=== PATIENT | female | born 1935 | race Caucasian/White ===

== ENCOUNTER 2016-11-09 08:33 | Inpatient (IN) | payer MEDICARE ==
[~2016-11-09] VITALS: Ht 157.5 cm; Wt 72.6 kg
[~2016-11-09 08:33] MED LIST: ALEVE220 MG PO; CITRACAL + D PO; COUMADIN2 MG PO; COUMADIN5 MG PO; FLORASTOR250 M1 PO; GABAPENTIN300 MG PO; KLOR CON PO; LORTAB 5/3255 MG PO; LOVASTATIN40 MG PO; MECLIZINE25 MG PO; MEDDOSEPAK PO; MUCINEX600 MG PO; MULTI VITAMN PO; PERCOCET 5/325M1 TAB PO; PRILOSEC20 MG/CAP PO; SYNTHROID25 MCG PO; VALIUM5 MG PO; ZOFRAN ODT4 MG PO
[2016-11-09 09:53] LABS: HEMATOCRIT 37.6 % (37.0-47.0); HEMOGLOBIN 12.3 g/dl (12.0-16.0); IMMATURE GRANULOCYTES 1.2 % (0.0-1.0); MEAN CELL VOLUME 103.9 fL CALC (80.0-100.0); MEAN CORPUSCULAR HGB CONC 32.7 g/L CALC (32.0-36.0); NEUT# 2.81 thou/uL (2.00-7.15); RED BLOOD COUNT 3.62 mill/uL (4.20-5.60); RED CELL DISTRI WIDTH 15.8 % (11.5-15.5)
[2016-11-09 10:01] LABS: ALBUMIN 3.4 g/dL (3.2-5.0); ALKALINE PHOSPHATASE 94 u/l (38-126); ANION GAP 13 (6-22 (CALC)); BILIRUBIN, TOTAL 0.4 mg/dL (0.0-1.4); BUN 13 mg/dL (8-23); BUN/CREATININE RATIO 20 (12-20 (CALC)); CALCIUM 8.8 mg/dL (8.4-10.2); CARBON DIOXIDE 26 mmol/l (22-30); CHLORIDE 102 mmol/l (95-108); CREATININE 0.7 mg/dL (0.5-1.0); GFR > 60 ML/MIN (>=60 (CALC)); GFR FOR AFR.AMER. > 60 ML/MIN (>=60 (CALC)); GLUCOSE 143 mg/dL (82-115); POTASSIUM 3.9 mmol/l (3.5-5.1); SGOT/AST 655 u/l (9-36); SGPT/ALT 576 u/l (11-66); SODIUM 137 mmol/l (137-146); TOTAL PROTEIN 7.3 g/dL (6.3-8.2)
[2016-11-09 10:02] LABS: URINE BILIRUBIN - DIPSTICK NEGATIVE (NEGATIVE); URINE BLOOD DIPSTICK TRACE-INTACT (NEGATIVE); URINE CLARITY CLEAR; URINE COLOR YELLOW; URINE GLUCOSE - DIPSTICK NEGATIVE (NEGATIVE); URINE KETONE NEGATIVE (NEGATIVE); URINE LEUK ESTERASE NEGATIVE (NEGATIVE); URINE NITRITE - DIPSTICK NEGATIVE (Negative); URINE PH 6.5 (4.5-8.0); URINE PROTEIN - DIPSTICK NEGATIVE (NEG-TRACE); URINE SPECIFIC GRAVITY 1.015; URINE UROBILINOGEN - DIPSTICK 0.2 E.U./dL (0.2)
[2016-11-09 10:09] LABS: INFLUENZA A NONE DETECTED (NONE DETECT); INFLUENZA B NONE DETECTED (NONE DETECT)
[2016-11-09 10:12] LABS: MYOGLOBIN 33 ng/mL (0 - 62)
[2016-11-09 10:14] LABS: AMYLASE 63 u/l (30-110); LIPASE 189 u/l (23-300)
--- NOTE | 2016-11-09 10:36 | NUR ---
PT RESTS IN THE STRETCHER IN NO ACUTE DISTRESS, UPDATED ON KNOWN RESULTS.
--- NOTE | 2016-11-09 11:48 | NUR ---
PT AWARE OF PENDING ADMISSION, FAMILY AND FRIENDS REMAIN AT BEDSIDE.
[2016-11-09] MEDS ORDERED: LEVOTHYROXIN75 MCG PO (11:52)
[2016-11-09] MEDS ORDERED: PREDNISONE5 MG PO (11:54)
--- NOTE | 2016-11-09 12:45 | NUR ---
PT REPORT RECEIVED FOR NELLY MATHIS. FOR CONTINUATION OF CARE. PT ALERT/ORIENTED X3, RESTING QUIETLY
--- NOTE | 2016-11-09 13:11 | NUR ---
PT TAKEN TO ULTRASOUND PER STRETCHER
--- NOTE | 2016-11-09 13:16 | NUR ---
PT BACK FROM XRAY.
--- NOTE | 2016-11-09 13:30 | NUR ---
TEMP RETAKEN 98.8
--- NOTE | 2016-11-09 14:26 | NUR ---
PT REPORT GIVEN TO RHEA MATHIS. FOR CONTIN. OF CARE. PT TAKEN TO FLOOR PER STRETCHER WITH TELEMENTRY
[2016-11-09 14:34] VITALS: BP 117/75
--- NOTE | 2016-11-09 14:38 | NUR ---
PT ARRIVED TO FLOOR @1419 VIA STRETCHER ACCOMPANIED BY DELFINA GALLARDO. PT DENIES PAIN. REPORTING OF CONCERNS ENCOURAGED. REPORTS GENERALIZED WEAKNESS. FALL PRECAUTIONS REINFORCED. PT ORIENTED TO ROOM AND EQUIPMENT. PLAN OF CARE DISCUSSED. CALL LIGHT REVIEWED AND IN REACH. PT STATES UNDERSTANDING.
--- NOTE | 2016-11-09 17:44 | NUR ---
PT DENIES PAIN. NO COMPLAINTS. REPORTS FEELING BETTER THAN WHEN ARRIVED. AT BEDSIDE.
[2016-11-09 19:05] VITALS: BP 136/92
--- NOTE | 2016-11-09 21:00 | NUR ---
PATIENT COMPLAINS OF HEADACHE. DR KRAMER NOTIFIED. ORDER RECEIVED FOR TRAMADOL EVERY 8 HOURS NEEDED FOR PAIN.
[2016-11-10] VITALS (7 sets, daily range): BP systolic 108–138; BP diastolic 66–86
--- NOTE | 2016-11-10 | NUR ---
PATIENT RESTING IN BED. COLD PACK APPLIED TO FOREHEAD COMFORT MEASURES FOR HEADACHE. NO ACUTE DISTRESS NOTED.
--- NOTE | 2016-11-10 02:00 | NUR ---
CALL MADE TO DR MCDONALD AT [phone] REGARDING PATIENT. CALL WENT TO VOICE MAIL. WILL ATTEMPT TO CALL AGAIN.
--- NOTE | 2016-11-10 02:10 | NUR ---
SECOND CALL MADE TO DR MCDONALD AT [phone] WITHOUT SUCCESS. CALL WENT TO VOICE MAIL.
--- NOTE | 2016-11-10 02:30 | NUR ---
ROUNDED ON PATIENT. SLEEPING WITH EYES CLOSED AND SNORING. RESPIRATION EVEN AND UNLABORED. NO ACUTE DISTRESS NOTED.
--- NOTE | 2016-11-10 02:40 | NUR ---
SPOKE WITH DR MCDONALD REGARDING PATIENT'S CONDITION. ORDERS RECEIVED.
--- NOTE | 2016-11-10 04:00 | NUR ---
PATIENT RESTING IN BED QUIETLY. NO ACUTE DISTRESS NOTED,
--- NOTE | 2016-11-10 05:30 | NUR ---
PATIENT STATES THAT HER HEADACHE IS GONE.
[2016-11-10 06:49] LABS: ALBUMIN 2.7 g/dL (3.2-5.0); ALKALINE PHOSPHATASE 77 u/l (38-126); ANION GAP 12 (6-22 (CALC)); BILIRUBIN, TOTAL 0.2 mg/dL (0.0-1.4); BUN 11 mg/dL (8-23); BUN/CREATININE RATIO 19 (12-20 (CALC)); CALCIUM 8.1 mg/dL (8.4-10.2); CARBON DIOXIDE 23 mmol/l (22-30); CHLORIDE 104 mmol/l (95-108); CREATININE 0.6 mg/dL (0.5-1.0); GFR > 60 ML/MIN (>=60 (CALC)); GFR FOR AFR.AMER. > 60 ML/MIN (>=60 (CALC)); GLUCOSE 158 mg/dL (82-115); POTASSIUM 4.1 mmol/l (3.5-5.1); SGOT/AST 533 u/l (9-36); SGPT/ALT 537 u/l (11-66); SODIUM 135 mmol/l (137-146)
[2016-11-10 06:53] LABS: HEMOGLOBIN 11.4 g/dl (12.0-16.0); IMMATURE GRANULOCYTES 1.2 % (0.0-1.0); MEAN CELL VOLUME 103.6 fL CALC (80.0-100.0); MEAN CORPUSCULAR HGB 33.7 pG CALC (26.0-32.0); MEAN CORPUSCULAR HGB CONC 32.6 g/L CALC (32.0-36.0); NEUT# 1.34 thou/uL (2.00-7.15); RED BLOOD COUNT 3.38 mill/uL (4.20-5.60); RED CELL DISTRI WIDTH 15.5 % (11.5-15.5)
[2016-11-10 07:52] LABS: CALCULATED LDLCHOLESTEROL 160 mg/dL (62-129 (CALC)); HDL CHOLESTEROL 27 mg/dL (>=40); TOTAL CHOLESTEROL 204 mg/dl (0-199); TOTAL TRIGLYCERIDES 86 mg/dl (30-149); VLDL CHOLESTROL 17 mg/dl (0-48 (CALC))
--- NOTE | 2016-11-10 08:27 | NUR ---
Pt resting quietly in chair. No resp. distress noted. No complaints voiced. Tele monitor inplace. Assessment completed. Denies any pain or discomfort. IV fluids completed, disconnect, saline lock intact, patent flushed, resecured with tape. Call light within reach.
[2016-11-10] MEDS ORDERED: WARFARIN2 MG PO ×2 (08:47)
[2016-11-10 11:01] LABS: INTERNATIONAL NORMALIZED RATIO 1.2 RATIO (0.7-1.3); PROTHROMBIN TIME 12.8 SECONDS (9.0-12.5)
--- NOTE | 2016-11-10 14:39 | NUR ---
Pt continues to rest quietly in bed. No resp. distress noted. Family at bedside. Will continue to monitor. Call light within reach.
--- NOTE | 2016-11-10 17:17 | NUR ---
Pt continues to rest quietly in bed. No resp. distress noted. No change in assessment. Will continue to monitor. Call light within reach.
--- NOTE | 2016-11-10 19:49 | NUR ---
PATIENT RESTING IN BED WITH AT BEDSIDE. PATIENT IS AWAKE ALERT AND ORIENTEDX3. PATIENT C/O NAUSEA AND INDIGESTION-MEDICATED WITH ZOFRAN 4MG IVP ORDERED. PATIENT WITH HEP LOCK TO RIGHT AC-SITE APPEARS HEALTHY AT THIS TIME. SAFETY PRECAUTIONS IN PLACE. CALL LIGHT IN REACH. WILL CONT TO MONITOR.
[2016-11-11] VITALS (7 sets, daily range): BP systolic 112–155; BP diastolic 69–85
--- NOTE | 2016-11-11 00:02 | NUR ---
PATIENT APPEARS SLEEPING AT THIS TIME WITH EYES CLOSED. CALL LIGHT IN REACH. WILL CONT TO MONITOR.
--- NOTE | 2016-11-11 04:19 | NUR ---
PATIENT APPEARS SLEEPING AT THIS TIME POSITIONED ON ER RIGHT SIDE. CALL LIGHT IN REACH. WILL CONT TO MONITOR.
[2016-11-11 05:34] LABS: HEMATOCRIT 37.2 % (37.0-47.0); HEMOGLOBIN 12.1 g/dl (12.0-16.0); IMMATURE GRANULOCYTES 1.8 % (0.0-1.0); MEAN CELL VOLUME 104.8 fL CALC (80.0-100.0); MEAN CORPUSCULAR HGB 34.1 pG CALC (26.0-32.0); MEAN CORPUSCULAR HGB CONC 32.5 g/L CALC (32.0-36.0); PLATELET COUNT 159 thou/uL (130-400); RED BLOOD COUNT 3.55 mill/uL (4.20-5.60); RED CELL DISTRI WIDTH 15.3 % (11.5-15.5)
[2016-11-11 05:42] LABS: ANION GAP 11 (6-22 (CALC)); BUN 14 mg/dL (8-23); BUN/CREATININE RATIO 23 (12-20 (CALC)); CALCIUM 8.9 mg/dL (8.4-10.2); CARBON DIOXIDE 27 mmol/l (22-30); CHLORIDE 106 mmol/l (95-108); CREATININE 0.6 mg/dL (0.5-1.0); GFR > 60 ML/MIN (>=60 (CALC)); GFR FOR AFR.AMER. > 60 ML/MIN (>=60 (CALC)); GLUCOSE 154 mg/dL (82-115); POTASSIUM 4.5 mmol/l (3.5-5.1); SODIUM 140 mmol/l (137-146)
[2016-11-11 05:46] LABS: INTERNATIONAL NORMALIZED RATIO 1.2 RATIO (0.7-1.3); PROTHROMBIN TIME 13.4 SECONDS (9.0-12.5)
[2016-11-11 06:15] LABS: MANUAL DIFFERENTIAL YES
--- NOTE | 2016-11-11 08:42 | NUR ---
Pt resting quietly sitting on edge of bed bathing. Pt alert and oriented. Skin warm and dry. No resp. distress noted. Lungs clear john. Tele monitor inplace. Will continue to monitor patient. Call light within reach.
[2016-11-11 09:45] LABS: SGOT/AST 298 u/l (9-36); SGPT/ALT 471 u/l (11-66)
--- NOTE | 2016-11-11 15:18 | NUR ---
PT RESTING QUIETLY ON THE EDGE OF THE BED. AT BEDSIDE. NO CHANGE IN ASSESSMENT. WILL CONTINUE TO MONITOR PATIENT. CALL LIGHT WITHIN REACH.
--- NOTE | 2016-11-11 18:17 | NUR ---
PT CONTINUES TO REST QUIETLY IN BED, HAS BEEN UP IN CHAIR FOR A LITTLE WHILE. HAS COMPANY. NO COMPLAINTS VOICED. NO CHANGE IN ASSESSMENT. WILL CONTINUE TO MONITOR. CALL LIGHT WITHIN REACH.
--- NOTE | 2016-11-11 20:50 | NUR ---
PT IN BED WATCHING TV, RESPIRATIONS EVEN AND UNLABORED ON RA. DENIES PAIN OR DISCOMFORT. ORIENTED TO USE CALL LIGHT FOR ASSISTANCE, BSC AT BED SIDE. WILL CONTINUE TO MONITOR.
--- NOTE | 2016-11-12 01:00 | NUR ---
OOB TO BSC WITH STEADY GAIT, VOIDING CLEAR YELLOW URINE, BACK TO BED. CALL LIGHT IN REACH.
[2016-11-12 04:05] VITALS: BP 112/69
[2016-11-12 05:13] LABS: INTERNATIONAL NORMALIZED RATIO 1.9 RATIO (0.7-1.3); PROTHROMBIN TIME 21.5 SECONDS (9.0-12.5)
[2016-11-12 05:21] LABS: ALBUMIN 2.7 g/dL (3.2-5.0); BUN 14 mg/dL (8-23); BUN/CREATININE RATIO 22 (12-20 (CALC)); CARBON DIOXIDE 28 mmol/l (22-30); CREATININE 0.6 mg/dL (0.5-1.0); GFR > 60 ML/MIN (>=60 (CALC)); GFR FOR AFR.AMER. > 60 ML/MIN (>=60 (CALC)); TOTAL PROTEIN 5.8 g/dL (6.3-8.2)
[2016-11-12 05:33] LABS: HEMATOCRIT 35.5 % (37.0-47.0); HEMOGLOBIN 11.4 g/dl (12.0-16.0); IMMATURE GRANULOCYTES 0.8 % (0.0-1.0); MEAN CELL VOLUME 105.3 fL CALC (80.0-100.0); MEAN CORPUSCULAR HGB 33.8 pG CALC (26.0-32.0); MEAN CORPUSCULAR HGB CONC 32.1 g/L CALC (32.0-36.0); PLATELET COUNT 150 thou/uL (130-400); RED BLOOD COUNT 3.37 mill/uL (4.20-5.60)
--- NOTE | 2016-11-12 05:41 | NUR ---
RESTING WITH EYES CLOSED RESPIRATIONS EVEN AND UNLABORED, WAKES EASILY TO VERBAL COMMAND, MEDICATED WITH SYNTHROID AT THIS TIME, CALL LIGHT IN REACH.
[2016-11-12 05:59] LABS: ALKALINE PHOSPHATASE 75 u/l (38-126); ANION GAP 10 (6-22 (CALC)); BILIRUBIN, TOTAL 0.2 mg/dL (0.0-1.4); CALCIUM 8.9 mg/dL (8.4-10.2); CHLORIDE 105 mmol/l (95-108); GLUCOSE 118 mg/dL (82-115); POTASSIUM 3.9 mmol/l (3.5-5.1); SGOT/AST 124 u/l (9-36); SGPT/ALT 310 u/l (11-66); SODIUM 139 mmol/l (137-146)
[2016-11-12 06:14] LABS: MANUAL DIFFERENTIAL YES
[2016-11-12 06:17] LABS: BAND 3 % (0-8)
[2016-11-12 07:20] VITALS: BP 132/83
--- NOTE | 2016-11-12 07:20 | NUR ---
PT SITTING UP IN RECLINER CHAIR FOR BREAKFAST. PT ALERT AND ORIENTED. SKIN WARM AND DRY. COLOR PINK. SALINE LOCK IN RIGH THUMB, SITE WITHOUT REDNESS OR EDEMA NOTED. ASSESSMENT COMPLETED. WILL CONTINUE TO MONITOR. CALL LIGHT WITHIN REACH.
[2016-11-12] MEDS ORDERED: PREDNISONE10 MG PO (09:50)
--- NOTE | 2016-11-12 11:21 | NUR ---
Discharge instructions given. Patient verbalizes understanding of same. Discharged in stable condition via Wheelchair to Home with spouse. All belongings sent with pt. DISCHARGE INSTRUCTIONS GIVEN TO BOTH PATIENT AND SPOUSE, VERBAL UNDERSTANDING OF TEACHING. SALINE LOCK REMOVED, SITE WITHOUT REDNESS OR EDEMA NOTED. DRESSING APPLIED. PT READY TO GO HOME. PT ALERT AND ORIENTED, SKIN WARM AND DRY, COLOR PINK. NO RESP. DISTRESS NOTED. DISCHARGE TO HOME.
--- NOTE | 2016-11-14 09:41 | NUR ---
PHARMACY MEDICATION FOLLOW-UP Patient was seen in ED on 11/09/16 Cultures were reviewed from: Blood Patient was discharged with Rx for:N/A C&S report came back with No Growth PLAN: C&S report called to physician Physician that was contacted: Contact #: Recommended: No Change Per Physician; Called the patient to Comment:
== END 2016-11-12 10:55 | disposition home or self-care (01) | DRG 948 ==
LOC: ENPENDDIS → ED 08:33 → ED-I 11:30 → MS2 12:25 → ED 12:25 → MS2 11-12 10:55
PROVIDERS: Emergency Medicine; Internal Medicine; ADMIT Internal Medicine; ATTEND Internal Medicine
DX: R53.1 Weakness (principal); K76.89 Other specified diseases of liver; D64.9 Anemia, unspecified; R79.89 Other specified abnormal findings of blood chemistry; R09.02 Hypoxemia; E89.0 Postprocedural hypothyroidism; T45.515A Adverse effect of anticoagulants, initial encounter; M19.90 Unspecified osteoarthritis, unspecified site; M35.3 Polymyalgia rheumatica; E78.5 Hyperlipidemia, unspecified; R79.1 Abnormal coagulation profile; D72.819 Decreased white blood cell count, unspecified; R50.9 Fever, unspecified; Z79.52 Long term (current) use of systemic steroids; Z86.711 Personal history of pulmonary embolism; Z86.718 Personal history of other venous thrombosis and embolism
CPT/HCPCS: J1650